=== PATIENT | female | born 1990 | race Caucasian/White ===

== ENCOUNTER 2024-06-19 13:49 | Outpatient (CLI) | payer SELFPAY ==
[2024-06-19 14:09] VITALS: BMI 28.1
[2024-06-19] MEDS: TUBERCULIN 5 UNITS/0.1ML 1ML VIAL ID (14:13)
== END 2024-06-19 23:59 | disposition home or self-care (01) ==
PROVIDERS: Visit Provider Nurse Practitioner
DX: Z11.1 Encounter for screening for respiratory tuberculosis (principal)
CPT/HCPCS: 86580

== ENCOUNTER 2024-07-27 10:53 | Emergency (ER) | payer SELFPAY ==
[2024-07-27 11:12] VITALS: BP 158/90; PULSE 99; RESP 14; TEMP 36.6; O2SAT 99; BMI 30.7
--- NOTE | 2024-07-27 12:02 | CT_ITS ---
PROCEDURE INFORMATION: Exam: CT Abdomen And Pelvis With Contrast Exam date and time: 07/27/2024 2:03 PM Age: 33 years old Clinical indication: Other: Chronic low abd and pelvic pain, fam HX cancer TECHNIQUE: Imaging protocol: Computed tomography of the abdomen and pelvis with contrast. Radiation optimization: All CT scans at this facility use at least one of these dose optimization techniques: automated exposure control; mA and/or kV adjustment per patient size (includes targeted exams where dose is matched to clinical indication); or iterative reconstruction. Contrast material: ISOVUE; Contrast volume: 75 ml; Contrast route: IV; COMPARISON: No relevant prior studies available. FINDINGS: Liver: Normal. No mass. Gallbladder and biliary ducts: Cholecystectomy Pancreas: Normal. No ductal dilation. Spleen: Normal. No splenomegaly. Adrenal glands: Normal. No mass. Kidneys and ureters: Nonobstructing renal calculi . No ureteral calculus Stomach and bowel: Unremarkable. No obstruction. No mucosal thickening. Appendix: Normal appendix Intraperitoneal space: Unremarkable. No free air. No significant fluid collection. Vasculature: Unremarkable. No abdominal aortic aneurysm. Lymph nodes: Unremarkable. No enlarged lymph nodes. Urinary bladder: Unremarkable as visualized. Reproductive: IUD in the uterus Bones/joints: Unremarkable. No acute fracture. Soft tissues: Unremarkable. IMPRESSION: No acute process
--- NOTE | 2024-07-27 12:05 | ED_ITS ---
Discharge Plan Disposition Patient Disposition: Home, Self-Care Prescriptions Prescriptions: New doxycycline hyclate 100 mg capsule 100 mg PO BID 7 Days Qty: 14 0RF metronidazole 500 mg tablet 500 mg PO BID 7 Days Qty: 14 0RF Referrals Follow up/Referrals: Dianne Gannon DO [Staff Physician] - See instructions Provider,Referral, [Primary Care Provider] - See instructions Activity Restrictions/Add. Instructions Additional Instructions/Restrictions: At this time it was felt you are safe to be discharged home. If new or worsening symptoms please do not hesitate to return the emergency department. Please take your antibiotics as prescribed and call and schedule appoint with Dr. Gannon soon as you are able. Clinical Impressions Clinical Impression: Vaginal discharge, Pelvic pain Instructions Patient Instructions: DI for Acute Abdominal Pain Print Language Print Language: Uzbek Discharge ED Provider: Kenneth Barcenas General Adult HPI General Chief complaint: Abdominal Pain Stated complaint: abd pain, swelling, bloating, lower back pain Time Seen by Provider: 07/27/24 11:00 Mode of Arrival: Ambulatory Source of Information: Patient Limitations: No Limitations Description of Symptoms (Recalled from ER Triage Doc. by RN): pt c/o bilateral lower quad pain, vaginal edema, nausea, lower back pain, urinary incontinence with coughing, constant vaginal spotting with white mucous. pt states this has been ongoing 3-4months. pt states the pain is intermittant and a 9/10 when she is having it. pt states she is not having any pain at this time. pt reports her mirena is a year past the date it should have been removed. it has been inserted x6 years. pt has a hx of endometriosis confrirmed with laproscopy. 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 History of Present Illness HPI narrative: Patient is a 33-year-old female who presents emergency department for evaluation of abdominal pain urinary dysuria and frequency, vaginal discharge. This is been going on for past 3 to 4 months and she recently bought property appear and has not been evaluated for this problem. She presents here at the behest of her . Has 1 sexual partner. Due to her low abdominal pain and the chronicity of this she is concerned because she has a familial history of gynecologic cancer. No chest pain reported. No other acute complaints at this time. Patient also has an IUD in place that was supposed to come out approximately 1 year ago. Related Data Previous Rx's ?Medication ?Instructions ?Recorded doxycycline hyclate 100 mg capsule 100 mg PO BID pelvic infection 7 07/27/24 days #14 caps metronidazole 500 mg tablet 500 mg PO BID pelvic infection 7 07/27/24 days #14 tabs Allergies Allergy/AdvReac Type Severity Reaction Status Date / Time No Known Allergies Allergy Verified 06/19/24 14:10 [facility] Disclaimer: The information contained in this section may have been updated after the patient was seen, as this information can be updated by other users. Social History Smoking Status: Current every day smoker alcohol intake: never current occupational status: other Travel in the last 8 weeks: None ROS Obtained: Yes Systems reviewed as appropriate & no additional complaints except as documented Physical Exam General General appearance: alert and in no apparent distress Head Head exam: atraumatic and normocephalic Eye Eye exam: Present PERRL ENT ENT exam: Present mucous membranes moist Neck Neck exam: Present normal inspection Chest Chest inspection: Present normal inspection and symmetric chest wall rise Respiratory Respiratory exam: Present normal lung sounds bilaterally; Absent respiratory distress Cardiovascular Cardiovascular exam: Present regular rate and normal rhythm Abdominal Exam Abdominal exam: Present soft and tenderness (Bilateral inguinal canal tenderness without palpable masses no overlying erythema, no tenderness in the periumbilical area suprapubic area or bilateral upper quadrants); Absent distention Bimanual exam: Present other (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 Normal external vaginal appearance, normal introitus, there is mucus and IUD strings at the cervical os, no significant erythema.) Extremities Exam Extremities exam: Present normal inspection Neurological Exam Neurological exam: Present alert Psychiatric Psychiatric exam: Present normal affect Skin Skin exam: Present warm and dry Medical Decision Making Medical Records Screening: Per USPSTF and CDC recommendations, given the prevalence of disease in our region, it is our hospital?s policy to screen for HIV and viral Hepatitis for all patients aged 18 and over and those with ongoing risk factors. Joey Inquiry Pt receiving controlled substance: No Vital Signs: 07/27/24 11:12 Temperature 97.9 F Temperature Source Oral Pulse Rate [Left] 99 H Respiratory Rate 14 Blood Pressure [Right Arm] 158/90 H Blood Pressure Mean [Right Arm] 112 Blood Pressure Source [Right Arm] Automatic Cuff Blood Pressure Position [Right Arm] Sitting 02 Sat by Pulse Oximetry 99 Oxygen Delivery Method Room Air Lab Data Lab Results 07/27/24 11:30: Urine Color Yellow, Urine Appearance Clear, Urine pH 7.0, Ur Specific Marcell 1.015, Urine Protein Negative, Urine Glucose (UA) Negative, Urine Ketones Negative, Urine Blood Trace-i, Urine Nitrate Negative, Urine Bilirubin Negative, Urine Urobilinogen 0.2, Ur Leukocyte Esterase Negative, Urine RBC 3-5, Urine WBC 3-5, Ur Squamous Epith Cells 5-10, Urine Yeast Occasional 07/27/24 11:31: WBC 7.1, RBC 4.70, Hgb 14.1, Hct 40.7, MCV 86.6, MCH 30.0, MCHC 34.6, RDW 12.1, Plt Count 287, MPV 9.3, Neut % (Auto) 64.9, Lymph % (Auto) 27.2, Mcclain % (Auto) 5.8, Eos % (Auto) 1.7, Baso % (Auto) 0.3, Neut # (Auto) 4.6, Lymph # (Auto) 1.9, Mcclain # (Auto) 0.4, Eos # (Auto) 0.1, Baso # (Auto) 0.0, Sodium 136, Potassium 3.7, Chloride 109 H, Carbon Dioxide 27, Anion Gap 3.7 L, BUN 10, Creatinine 0.70, Estimated Creat Clear 159, Estimated GFR 96, Est GFR ( Amer) 116, Glucose 93, Calcium 9.0, Total Bilirubin 0.4, AST 31, ALT 24, Alkaline Phosphatase 52, Total Protein 7.3, Albumin 4.1, Globulin 3.2, Albumin/Globulin Ratio 1.3, Lipase 50, Serum HCG, Qual Negative, HIV Ag/Ab Combo Qual Negative 07/27/24 11:31 07/27/24 11:31 Orders (Tests/Meds): ED MEDICATIONS Discontinued Medications Generic Name Dose Route Start Last Admin Trade Name Freq PRN Reason Stop Dose Admin Acetaminophen 1,000 mg 07/27/24 12:02 07/27/24 12:22 Acetaminophen 1,000mg/100ml Vial IV 07/27/24 12:03 1,000 mg ONCE ONE Administration Ceftriaxone Sodium 1 gm 07/27/24 13:12 07/27/24 13:26 Ceftriaxone 1gm Vial IM 07/27/24 13:13 1 gm ONCE ONE Administration Doxycycline Hyclate 100 mg 07/27/24 13:13 07/27/24 13:26 Doxycycline Hycl 100 Mg Tablet PO 07/27/24 13:14 100 mg ONCE ONE Administration Iopamidol 75 ml 07/27/24 14:04 07/27/24 14:05 Iopamidol-370 (76%);100ml Bottle IV 07/27/24 14:05 75 ml ONCE ONE Administration Lidocaine HCl 0 ml 07/27/24 13:12 07/27/24 13:26 Lidocaine 1% 5ml Pf Vial IM 07/27/24 13:13 3.6 ml ONCE ONE Administration Metronidazole 500 mg 07/27/24 13:14 07/27/24 13:26 Metronidazole 500 Mg Tablet PO 07/27/24 13:15 500 mg ONCE ONE Administration Ondansetron HCl 4 mg 07/27/24 12:02 07/27/24 12:22 Ondansetron 4mg/2ml Vial IV 07/27/24 12:03 4 mg ONCE ONE Administration Sodium Chloride 10 ml 07/27/24 14:04 07/27/24 14:05 Sodium Chloride 0.9% 10ml Syr (Rad Only) IV 07/27/24 14:05 10 ml ONCE ONE Administration ORDERS Category Date Time Status CT abdomen pelvis w con Stat Cat Scan 07/27/24 12:02 Completed CBC w/Auto Diff [Complete Blood Count Auto Diff] Stat Lab 07/27/24 11:31 Completed CMP [Comprehensive Metabolic Panel] Stat Lab 07/27/24 11:31 Completed HCG Qualitative, Serum Stat Lab 07/27/24 11:31 Completed HIV Combo Stat Lab 07/27/24 11:31 Completed Hep C Ab with Reflex to RNA Stat Lab 07/27/24 11:31 Received Lipase Stat Lab 07/27/24 11:31 Completed UA [Urinalysis and Microscopic] Stat Lab 07/27/24 11:30 Completed Genital Culture and Gram Stain Stat Micro 07/27/24 12:38 Received Medical Decision Narrative: In summary patient is a 33-year-old male with past medical history described above who presents emergency department for evaluation of chronic lower abdominal pain and vaginal discharge has not been evaluated. Patient is hemodynamically stable on arrival, afebrile. Differential diagnosis includes urinary tract infection, vaginitis, STI, vaginosis, uterine mass, among others. Workup be conducted with hematologic labs, vaginal swabs, urine GC chlamydia, CT abdomen pelvis with IV contrast.. Initial inventions include IV Tylenol, Zofran, intramuscular ceftriaxone, doxycycline, metronidazole. Initial workup reviewed by me, hematologic labs are nonactionable no acute TOYIN or critical electrolyte abnormality, no significant leukocytosis, urinalysis interpreted by me not consistent with infection. hCG negative. CT of the abdomen pelvis informally visualized by me, no obvious large ovarian or uterine mass. Formal read shows no acute process, IUD in uterus. Given this patient is appropriate for outpatient management at this time will be discharged with a course of doxycycline and metronidazole and will be referred to Dianne Gannon for continued evaluation at this time. Patient was given return precautions. Critical Care Critical Care Time Critical Care Time: No
[2024-07-27] MEDS: ACETAMINOPHEN 1,000MG/100ML VIAL 1000 MG IV (12:22)
[2024-07-27] MEDS: ONDANSETRON 4MG/2ML VIAL 4 MG IV (12:22)
[2024-07-27 12:27] LABS: Microscopic, Urine URINE MICROSCOPIC (MICROSCOPIC)
[2024-07-27 12:35] LABS: Albumin Level 4.1 g/dl (3.5-5.0); Chloride 109 mmol/L (98-107); Potassium 3.7 mmoL/L (3.5-5.1); Sodium 136 mmol/L (136-145)
[2024-07-27 12:37] LABS: Alanine Aminotransferase 24 U/L (12-78); Alkaline Phosphatase 52 U/L (38-126); Anion Gap 3.7 mEq/L (5-15); Aspartate Amino Transferase 31 U/L (14-36); Bilirubin,Total 0.4 mg/dl (0.2-1.3); Blood Urea Nitrogen 10 mg/dl (7-17); Carbon Dioxide 27 mmol/L (22.0-30.0); Creatinine Clearance Estimated 159 mL/min (50-200); Estimated Glomerular Filt Rate 96 ml/min (>60); GFR (African American) 116 ML/MIN (>60)
[2024-07-27 12:38] LABS: Albumin/Globulin Ratio 1.3 (1.1-1.8); Globulin 3.2 g/dL (1.3-3.2); Glucose 93 mg/dl (74-100); Lipase 50 U/L (23-300); Total Protein,Serum 7.3 g/dl (6.3-8.2)
[2024-07-27 12:49] LABS: Appearance,Urine CLEAR (Clear); Bilirubin,Urine Negative (Negative); Blood, Urine TRACE-I (Negative); Color,Urine YELLOW (Yellow); Glucose,Urine (UA) Negative (Negative); Ketones,Urine Negative (Negative); Leukocyte Esterase,Urine Negative (Negative); Nitrate,Urine Negative (Negative); Protein,Urine Negative (Negative); Specific Gravity, Urine 1.015 (1.005-1.030); Urobilinogen,Urine 0.2 EU/dl (0.2)
[2024-07-27] MEDS: DOXYCYCLINE HYCL 100 MG TABLET PO (13:26)
[2024-07-27] MEDS: cefTRIAXone 1GM VIAL 1 GM IM (13:26)
[2024-07-27] MEDS: LIDOCAINE 1% 5ML PF VIAL IM (13:26)
[2024-07-27] MEDS: metroNIDAZOLE 500 MG TABLET PO (13:26)
[2024-07-27 13:39] LABS: Basophils % 0.3 % (0.1-2.0); Eosinophils # 0.1 K/mm3 (0.0-0.4); Eosinophils % 1.7 % (0.1-12.0); Hematocrit 40.7 % (37.0-47.0); Hemoglobin 14.1 g/dL (12.2-16.2); Lymphocytes # 1.9 K/mm3 (0.7-4.5); Lymphocytes % 27.2 % (10-50); Mean Corpuscular HGB Conc 34.6 g/dL (31.8-35.4); Mean Corpuscular Volume 86.6 fl (81-99); Mean Platelet Volume 9.3 fl (7.4-10.4); Monocytes # 0.4 K/mm3 (0.1-1.0); Monocytes % 5.8 % (1.7-9.3); Neutrophils # 4.6 K/mm3 (1.8-7.8); Neutrophils % 64.9 % (37.0-80.0); Platelet Count 287 K/mm3 (142-424); Red Cell Distribution Width 12.1 % (11.5-17.5); White Blood Count 7.1 K/mm3 (4.8-10.8)
[2024-07-27 13:39] LABS: Yeast,Urine Occasional /lpf
[2024-07-27 13:49] LABS: HIV Combo NEGATIVE (Negative)
[2024-07-27 13:55] LABS: HCG Qualitative, Serum Negative (Negative)
[2024-07-27] MEDS: IOPAMIDOL-370 (76%);100ML BOTTLE 75 ML IV (14:05)
[2024-07-27] MEDS: SODIUM CHLORIDE 0.9% 10ML SYR (RAD ONLY) 10 ML IV (14:05)
[2024-07-27 15:16] VITALS: BP 118/83; PULSE 68; O2SAT 99
[2024-07-27 15:20] VITALS: BP 119/83; PULSE 68; RESP 18; TEMP 36.6
[2024-07-29 10:08] LABS: HCV Ab Non Reactive (Non Reactive)
[2024-07-30 20:08] LABS: Neisseria gonorrhoeae, NAA Negative (Negative)
== END 2024-07-27 15:21 | disposition home or self-care (01) ==
PROVIDERS: Emergency Provider Emergency Medicine
DX: N89.8 Other specified noninflammatory disorders of vagina (principal); R10.31 Right lower quadrant pain; R10.32 Left lower quadrant pain; M54.50 Low back pain, unspecified; R30.0 Dysuria; R35.0 Frequency of micturition
CPT/HCPCS: 74177; 80053; 81001; 83690; 84703; 85025; 86803; 87070; 87205; 87210; 87389; 87491; 87591; 96372; 96374; 96375; 99285; J0131; J0696; J2405; Q9967

== ENCOUNTER 2025-06-17 09:38 | Emergency (ER) | payer MEDICAID, SELFPAY ==
[2025-06-17] VITALS (8 sets, daily range): BP systolic 96–127; BP diastolic 64–72; PULSE 60–87; RESP 14–16; TEMP 37; O2SAT 95–99; BMI 29.1
--- NOTE | 2025-06-17 09:44 | ED_ITS ---
Discharge Plan Disposition Patient Disposition: Home, Self-Care Prescriptions Prescriptions: New promethazine 25 mg tablet 25 mg PO TID PRN (Reason: nausea and vomiting) Qty: 12 0RF No Action doxycycline hyclate 100 mg capsule 100 mg PO BID 7 Days Qty: 14 0RF metronidazole 500 mg tablet 500 mg PO BID 7 Days Qty: 14 0RF Referrals Follow up/Referrals: Provider,Referral, MD [Primary Care Provider, Medical] - See instructions Activity Restrictions/Add. Instructions Additional Instructions/Restrictions: At this time it was felt you are safe to be discharged home. If new or worsening symptoms please do not hesitate to return the emergency department. Please take your medications as prescribed. It is likely your vomiting is due to one of the many viruses going around in our community. If your vomiting persists throughout this week please call and schedule appointment to follow-up with your family doctor to make sure things are headed in the right direction. If you are unable to keep anything down despite your nausea medication please represent to the emergency room for continued evaluation. Clinical Impressions Clinical Impression: Vomiting Instructions Patient Instructions: DI for Diarrhea and Traveler's Diarrhea in Adults, DI for Diarrhea and Traveler's Diarrhea in Children, DI for Nausea in Adults, DI for Nausea in Children Print Language Print Language: Guamanian Discharge ED Provider: Kenneth Barcenas HPI General Chief Complaint: Nausea/Vomiting/Diarrhea Stated Complaint: vomiting, low grade fever Time Seen by Provider: 06/17/25 09:43 History of Present Illness HPI narrative: Speech box open speech box Related Data Previous Rx's ?Medication ?Instructions ?Recorded doxycycline hyclate 100 mg capsule 100 mg PO BID pelvi c infection 7 07/27/24 days #14 caps metronidazole 500 mg tablet 500 mg PO BID pelvic infec tion 7 07/27/24 days #14 tabs promethazine 25 mg tablet 25 mg PO TID PRN nausea and 06/17/25 vomiting #12 tabs Allergies Allergy/AdvReac Type Severity Reaction Status Date / Time No Known Allergies Allergy Verified 06/19/24 14:10 [facility] Disclaimer: The information contained in this section may have been updated after the patient was seen, as this information can be updated by other users. Social History (Updated 07/27/24 @ 15:15 by Kenneth Barcenas MD) Smoking Status: Current every day smoker alcohol intake: never current occupational status: other Travel in the last 8 weeks?: None Have you lived/traveled outside [place] in past 30 days?: No Contact w/someone who lives/traveled outside [place] past 30 days?: No Exposure to someone with infectious disease in past 14 days?: No Do you have a fever (greater than 100.4 F or 38 C)?: No Have you tested positive for COVID-19?: No Exposed to someone with COVID-19 in past 14 days?: No Do you have a sore throat?: No Do you have a cough?: No Do you have any weakness?: No Do you have any diarrhea?: No Are you experiencing any unusual bleeding?: No Do you have any muscle aches/pain?: No Do you have any abdominal pain?: No Are you experiencing loss of taste or smell?: No ROS Obtained: Yes Systems reviewed as appropriate & no additional complaints except as documented Physical Exam General General appearance: alert and in no apparent distress Head Head exam: atraumatic and normocephalic Eye Eye exam: Present PERRL and EOMI ENT ENT exam: Present mucous membranes moist Neck Neck exam: Present normal inspection Chest Chest inspection: Present normal inspection and symmetric chest wall rise Respiratory Respiratory exam: Present normal lung sounds bilaterally; Absent respiratory distress Cardiovascular Cardiovascular exam: Present regular rate and normal rhythm Abdominal Exam Abdominal exam: Present soft; Absent tenderness, guarding or rebound Extremities Exam Extremities exam: Present normal inspection Neurological Exam Neurological exam: Present alert Psychiatric Psychiatric exam: Present normal affect Skin Skin exam: Present warm and dry Medical Decision Making Joey Inquiry Pt receiving controlled substance: No Vital Signs Vital Signs: 06/17/25 09:57 06/17/25 10:00 06/17/25 10:15 Temperature 98.6 F Temperature Source Oral Pulse Rate 83 71 Pulse Rate [Right Radial] 87 Respiratory Rate 14 Blood Pressure 125/64 109/69 L Blood Pressure [Right Arm] 127/72 Blood Pressure Mean [Right Arm] 90 Blood Pressure Source [Right Arm] Automatic Cuff Blood Pressure Position [Right Arm] Supine 02 Sat by Pulse Oximetry 97 95 95 Oxygen Delivery Method Room Air 06/17/25 10:30 06/17/25 10:45 Temperature Temperature Source Pulse Rate 77 74 Pulse Rate [Right Radial] Respiratory Rate Blood Pressure 110/70 111/71 Blood Pressure [Right Arm] Blood Pressure Mean [Right Arm] Blood Pressure Source [Right Arm] Blood Pressure Position [Right Arm] 02 Sat by Pulse Oximetry 96 96 Oxygen Delivery Method Lab Data Labs: Lab Results 06/17/25 09:51: WBC 9.3, RBC 4.95, Hgb 14.8, Hct 43.8, MCV 88.5, MCH 29.9, MCHC 33.8, RDW 12.3, Plt Count 271, MPV 9.0, Neut % (Auto) 81.4 H, Lymph % (Auto) 12.5, Bladen % (Auto) 5.2, Eos % (Auto) 0.6, Baso % (Auto) 0.1, Neut # (Auto) 7.6, Lymph # (Auto) 1.2, Bladen # (Auto) 0.5, Eos # (Auto) 0.1, Baso # (Auto) 0.0, S odium 135 L, Potassium 3.9, Chloride 105, Carbon Dioxide 24, Anion Gap 9.9, BUN 12, Creatinine 0.80, Estimated Creat Clear 131, Estimated GFR 82, Est GFR ( Amer) 99, Glucose 94, Calcium 9.4, Total Bilirubin 0.7, AST 25, ALT 19, Alkaline Phosphatase 52, Total Protein 8.5 H, Albumin 4.8, Globulin 3.7 H, Albumin/Globulin Ratio 1.3, Lipase 65, Serum HCG, Qual Negative, SARS-CoV-2 (PCR) Not detected, Influenza A Untype (PCR) Not detected, Influenza Type B (PCR) Not detected 06/17/25 09:51 06/17/25 09:51 Response Orders (Tests/Meds): ED MEDICATIONS Discontinued Medications Generic Name Dose Route Start Last Admin Trade Name Freq PRN Reason Stop Dose Admin Lactated Ringer's 1,000 mls @ 999 mls/hr 06/17/25 09:53 06/17/25 10:05 Lactated Ringer's 1000 Ml Bag IV 06/17/25 10:53 999 mls/hr .Q1H1M ONE Administration Ondansetron HCl 4 mg 06/17/25 09:53 06/17/25 10:05 Ondansetron 4mg/2ml Vial IV 06/17/25 09:54 4 mg ONCE ONE Administration Promethazine HCl 25 mg 06/17/25 10:38 06/17/25 10:52 Promethazine Hcl 25mg/Ml 1ml Vial IV 06/17/25 10:39 25 mg ONCE ONE Administration Sodium Chloride 25 ml 06/17/25 10:38 06/17/25 10:52 Sodium Chloride 0.9% 25ml Bag IV 06/17/25 10:39 25 ml ONCE ONE Administration ORDERS Category Date Time Status CBC w/Auto Diff [Complete Blood Count Auto Diff] Stat Lab 06/17/25 09:51 Completed CMP [Comprehensive Metabolic Panel] Stat Lab 06/17/25 09:51 Completed HCG Qualitative, Serum Stat Lab 06/17/25 09:51 Completed Lipase Stat Lab 06/17/25 09:51 Completed Rapid PCR Covid and Flu A/B Stat Lab 06/17/25 09:51 Completed EKG Request [ECG Request] Stat Y 06/17/25 09:43 Stop Req EKG Request [ECG Request] Stat Y 06/17/25 09:53 Ordered ECG Data Tracing #1: ECG Narrative: Independently interpreted by me rate is 74, rhythm is regular, axis is normal, no ST elevation in anatomical contiguous leads, QTc 396 MDM Narrative Medical Decision Narrative: In summary patient is a 34-year-old female with past medical history as described above who presents to the emergency department for evaluation of vomiting. Patient is hemodynamically stable nontoxic-appearing upon arrival, afebrile. Differential diagnosis includes nonspecific viral syndrome, pancreatitis, gastritis, , among others. Workup will be conducted with hematologic labs, hCG, viral swab. Initial inventions include Zofran, crystalloid bolus. Initial workup reviewed by me no significant leukocytosis no transfusable anemia no TOYIN or critical electrolyte abnormality hCG negative. Viral swab negative. Upon repeat evaluation patient still had significant nausea for which Phenergan will be administered. P.o. trial conducted at bedside was successful. Given this patient is appropriate for discharge at this time likely has nonspecific viral syndrome was given return precautions and will be discharged with a course of Phenergan.
[2025-06-17 10:01] LABS: Coronavirus 19, PCR Not Detected (NotDetected); Influenza A, PCR Not Detected (NotDetected); Influenza B, PCR Not Detected (NotDetected)
--- NOTE | 2025-06-17 10:04 | ECG_ITS ---
APPROVED REPORT Exam: Resting ECG HR:74 bpm ECG Measurements Heart Rate 74 AXES WA 149 P 57 QRSd 86 QRS 63 QT 369 T 53 QTc 396 Conclusion SINUS RHYTHM NORMAL ECG Electronically signed by : MEKHI BRIDGES, 06/17/2025 15:03:13
[2025-06-17] MEDS: LACTATED RINGERS 1000ML 1,000 ML 999 ML IV (10:05)
[2025-06-17] MEDS: ONDANSETRON 4MG/2ML VIAL 4 MG IV (10:05)
[2025-06-17 10:08] LABS: Hematocrit 43.8 % (37.0-47.0); Hemoglobin 14.8 g/dL (12.2-16.2); Immature Granulocytes % 0.2 %; Mean Corpuscular HGB Conc 33.8 g/dL (31.8-35.4); Mean Corpuscular Hemoglobin 29.9 pg (27.0-31.2); Mean Corpuscular Volume 88.5 fl (81-99); Nucleated Red Blood Cells % 0 %; Platelet Count 271 K/mm3 (142-424); Red Blood Count 4.95 M/mm3 (4.20-5.40); Red Cell Distribution Width-SD 40.0 fL; White Blood Count 9.3 K/mm3 (4.8-10.8)
[2025-06-17 10:15] LABS: Alanine Aminotransferase 19 U/L (12-78); Albumin Level 4.8 g/dl (3.5-5.0); Albumin/Globulin Ratio 1.3 (1.1-1.8); Alkaline Phosphatase 52 U/L (38-126); Anion Gap 9.9 mEq/L (5-15); Aspartate Amino Transferase 25 U/L (14-36); Bilirubin,Total 0.7 mg/dl (0.2-1.3); Blood Urea Nitrogen 12 mg/dl (7-17); Calcium 9.4 mg/dl (8.4-10.2); Carbon Dioxide 24 mmol/L (22.0-30.0); Chloride 105 mmol/L (98-107); Creatinine Clearance Estimated 131 mL/min (50-200); Creatinine,Serum 0.80 mg/dl (0.52-1.04); Estimated Glomerular Filt Rate 82 ml/min (>60); GFR (African American) 99 ML/MIN (>60); Globulin 3.7 g/dL (1.3-3.2); Glucose 94 mg/dl (74-100); Lipase 65 U/L (23-300); Potassium 3.9 mmoL/L (3.5-5.1); Sodium 135 mmol/L (136-145); Total Protein,Serum 8.5 g/dl (6.3-8.2)
[2025-06-17 10:30] LABS: HCG Qualitative, Serum Negative (Negative)
--- NOTE | 2025-06-17 10:38 | PC.NURSE ---
I rounded on the pt and took her a water for PO challenge. She reports she is still feeling bad and that the zofran has not helped. No other needs voiced. No new complaints. call mccormick in reach. notified and is going to order something else for nausea.
[2025-06-17] MEDS: SODIUM CHLORIDE 0.9% 25ML BAG 25 ML IV (10:52)
[2025-06-17] MEDS: PROMETHAZINE HCL 25MG/ML 1ML VIAL 25 MG IV (10:52)
--- NOTE | 2025-06-17 11:10 | ED_ITS ---
Discharge Plan Disposition Patient Disposition: Home, Self-Care Prescriptions Prescriptions: New promethazine 25 mg tablet 25 mg PO TID PRN (Reason: nausea and vomiting) Qty: 12 0RF No Action doxycycline hyclate 100 mg capsule 100 mg PO BID 7 Days Qty: 14 0RF metronidazole 500 mg tablet 500 mg PO BID 7 Days Qty: 14 0RF Referrals Follow up/Referrals: Provider,Referral, MD [Primary Care Provider, Medical] - See instructions Activity Restrictions/Add. Instructions Additional Instructions/Restrictions: At this time it was felt you are safe to be discharged home. If new or worsening symptoms please do not hesitate to return the emergency department. Please take your medications as prescribed. It is likely your vomiting is due to one of the many viruses going around in our community. If your vomiting persists throughout this week please call and schedule appointment to follow-up with your family doctor to make sure things are headed in the right direction. If you are unable to keep anything down despite your nausea medication please represent to the emergency room for continued evaluation. Clinical Impressions Clinical Impression: Vomiting Stand Alone Forms Stand Alone Forms: Work/School Release Instructions Patient Instructions: DI for Diarrhea and Traveler's Diarrhea in Adults, DI for Diarrhea and Traveler's Diarrhea in Children, DI for Nausea in Adults, DI for Nausea in Children Print Language Print Language: Burmese Discharge ED Provider: Kenneth Barcenas General Adult HPI General Chief complaint: Nausea/Vomiting/Diarrhea Stated complaint: vomiting, low grade fever Time Seen by Provider: 06/17/25 09:43 Mode of Arrival: Ambulatory Source of Information: Patient Description of Symptoms (Recalled from ER Triage Doc. by RN): patient states she has been nauseated and vomited twice today. no abdominal pain History of Present Illness HPI narrative: Patient is a 34-year-old female with no pertinent past medical history presents emergency department for evaluation of vomiting. History is obtained by patient at bedside since 8 AM this morning she has had nausea and nonbloody vomiting. No diarrhea, no dysuria no vaginal bleeding or discharge last menstrual period 7 years ago. Abdominal surgical history includes cholecystectomy. No chest pain no cough no other acute complaints at this time. Please note that above description of symptoms, in this electronic medical record under categorization of recalled from ER triage doctor by RN are reflective of an initial nursing assessment, however, is not reflective of my full history and physical exam that was personally taken and clarified. Consequentially, this preceding description of symptoms, which may include the patient's categorized chief complaint in the EMR, do not reflect my personal clinical impression, and the ultimate description of history of present illness and patient stated complaints should be deferred to this section of the note. Unless stated otherwise or congruent with this section of the note, additional signs, symptoms, or incongruence should be interpreted as inaccurate with my clinical impression. Related Data Previous Rx's ?Medication ?Instructions ?Recorded doxycycline hyclate 100 mg capsule 100 mg PO BID pelvi c infection 7 07/27/24 days #14 caps metronidazole 500 mg tablet 500 mg PO BID pelvic infec tion 7 07/27/24 days #14 tabs promethazine 25 mg tablet 25 mg PO TID PRN nausea and 06/17/25 vomiting #12 tabs Allergies Allergy/AdvReac Type Severity Reaction Status Date / Time No Known Allergies Allergy Verified 06/19/24 14:10 [facility] Disclaimer: The information contained in this section may have been updated after the patient was seen, as this information can be updated by other users. Social History (Updated 07/27/24 @ 15:15 by Kenneth Barcenas MD) Smoking Status: Current every day smoker alcohol intake: never current occupational status: other Travel in the last 8 weeks?: None Have you lived/traveled outside [place] in past 30 days?: No Contact w/someone who lives/traveled outside [place] past 30 days?: No Exposure to someone with infectious disease in past 14 days?: No Do you have a fever (greater than 100.4 F or 38 C)?: No Have you tested positive for COVID-19?: No Exposed to someone with COVID-19 in past 14 days?: No Do you have a sore throat?: No Do you have a cough?: No Do you have any weakness?: No Do you have any diarrhea?: No Are you experiencing any unusual bleeding?: No Do you have any muscle aches/pain?: No Do you have any abdominal pain?: No Are you experiencing loss of taste or smell?: No ROS Obtained: Yes Systems reviewed as appropriate & no additional complaints except as documented Physical Exam General General appearance: alert and in no apparent distress Head Head exam: atraumatic and normocephalic Eye Eye exam: Present PERRL and EOMI ENT ENT exam: Present mucous membranes moist Neck Neck exam: Present normal inspection Chest Chest inspection: Present normal inspection and symmetric chest wall rise Respiratory Respiratory exam: Present normal lung sounds bilaterally; Absent respiratory distress Cardiovascular Cardiovascular exam: Present regular rate and normal rhythm Abdominal Exam Abdominal exam: Present soft; Absent tenderness, guarding, rebound or rigidity Extremities Exam Extremities exam: Present normal inspection Neurological Exam Neurological exam: Present alert and CN II-XII intact Psychiatric Psychiatric exam: Present normal affect Skin Skin exam: Present warm and dry Medical Decision Making Medical Records Screening: Per USPSTF and CDC recommendations, given the prevalence of disease in our region, it is our hospital?s policy to screen for HIV and viral Hepatitis for all patients aged 18 and over and those with ongoing risk factors. Joey Inquiry Pt receiving controlled substance: No Vital Signs: 06/17/25 09:57 06/17/25 10:00 06/17/25 10:15 Temperature 98.6 F Temperature Source Oral Pulse Rate 83 71 Pulse Rate [Right Radial] 87 Respiratory Rate 14 Blood Pressure 125/64 109/69 L Blood Pressure [Right Arm] 127/72 Blood Pressure Mean [Right Arm] 90 Blood Pressure Source [Right Arm] Automatic Cuff Blood Pressure Position [Right Arm] Supine 02 Sat by Pulse Oximetry 97 95 95 Oxygen Delivery Method Room Air 06/17/25 10:30 06/17/25 10:45 Temperature Temperature Source Pulse Rate 77 74 Pulse Rate [Right Radial] Respiratory Rate Blood Pressure 110/70 111/71 Blood Pressure [Right Arm] Blood Pressure Mean [Right Arm] Blood Pressure Source [Right Arm] Blood Pressure Position [Right Arm] 02 Sat by Pulse Oximetry 96 96 Oxygen Delivery Method Lab Data Lab Results 06/17/25 09:51: WBC 9.3, RBC 4.95, Hgb 14.8, Hct 43.8, MCV 88.5, MCH 29.9, MCHC 33.8, RDW 12.3, Plt Count 271, MPV 9.0, Neut % (Auto) 81.4 H, Lymph % (Auto) 12.5, [place] % (Auto) 5.2, Eos % (Auto) 0.6, Baso % (Auto) 0.1, Neut # (Auto) 7.6, Lymph # (Auto) 1.2, [place] # (Auto) 0.5, Eos # (Auto) 0.1, Baso # (Auto) 0.0, S odium 135 L, Potassium 3.9, Chloride 105, Carbon Dioxide 24, Anion Gap 9.9, BUN 12, Creatinine 0.80, Estimated Creat Clear 131, Estimated GFR 82, Est GFR ( Amer) 99, Glucose 94, Calcium 9.4, Total Bilirubin 0.7, AST 25, ALT 19, Alkaline Phosphatase 52, Total Protein 8.5 H, Albumin 4.8, Globulin 3.7 H, Albumin/Globulin Ratio 1.3, Lipase 65, Serum HCG, Qual Negative, SARS-CoV-2 (PCR) Not detected, Influenza A Untype (PCR) Not detected, Influenza Type B (PCR) Not detected 06/17/25 09:51 06/17/25 09:51 Orders (Tests/Meds): ED MEDICATIONS Discontinued Medications Generic Name Dose Route Start Last Admin Trade Name Freq PRN Reason Stop Dose Admin Lactated Ringer's 1,000 mls @ 999 mls/hr 06/17/25 09:53 06/17/25 11:07 Lactated Ringer's 1000 Ml Bag IV 06/17/25 10:53 Infused .Q1H1M ONE Infusion Ondansetron HCl 4 mg 06/17/25 09:53 06/17/25 10:05 Ondansetron 4mg/2ml Vial IV 06/17/25 09:54 4 mg ONCE ONE Administration Promethazine HCl 25 mg 06/17/25 10:38 06/17/25 10:52 Promethazine Hcl 25mg/Ml 1ml Vial IV 06/17/25 10:39 25 mg ONCE ONE Administration Sodium Chloride 25 ml 06/17/25 10:38 06/17/25 10:52 Sodium Chloride 0.9% 25ml Bag IV 06/17/25 10:39 25 ml ONCE ONE Administration ORDERS Category Date Time Status CBC w/Auto Diff [Complete Blood Count Auto Diff] Stat Lab 06/17/25 09:51 Completed CMP [Comprehensive Metabolic Panel] Stat Lab 06/17/25 09:51 Completed HCG Qualitative, Serum Stat Lab 06/17/25 09:51 Completed Lipase Stat Lab 06/17/25 09:51 Completed Rapid PCR Covid and Flu A/B Stat Lab 06/17/25 09:51 Completed EKG Request [ECG Request] Stat Y 06/17/25 09:43 Stop Req EKG Request [ECG Request] Stat Y 06/17/25 09:53 Ordered ECG Data Tracing #1: Independently interpreted by me rate is 74, rhythm is regular, axis is normal, no ST elevation in anatomical contiguous leads, QTc 396 Medical Decision Narrative: In summary patient is a 34-year-old female with past medical history as described above who presents to the emergency department for evaluation of vomiting. Patient is hemodynamically stable nontoxic-appearing upon arrival, afebrile. Differential diagnosis includes nonspecific viral syndrome, pancreatitis, gastritis, , among others. Workup will be conducted with hematologic labs, hCG, viral swab. Initial inventions include Zofran, crystalloid bolus. Initial workup reviewed by me no significant leukocytosis no transfusable anemia no TOYIN or critical electrolyte abnormality hCG negative. Viral swab negative. Upon repeat evaluation patient still had significant nausea for which Phenergan will be administered. P.o. trial conducted at bedside was successful. Given this patient is appropriate for discharge at this time likely has nonspecific viral syndrome was given return precautions and will be discharged with a course of Phenergan. [employer]pper [employer] T[employer] disclaimer Much of this encounter note is an electronic train conductor spoken language to printed text. Electronic train conductor of the spoken language may permit errors. Although I have reviewed the note, some errors may still exist. Critical Care Critical Care Time Critical Care Time: No
== END 2025-06-17 11:24 | disposition home or self-care (01) ==
PROVIDERS: Emergency Provider Emergency Medicine
DX: R11.10 Vomiting, unspecified (principal); R50.9 Fever, unspecified
CPT/HCPCS: 80053; 83690; 84703; 85025; 87636; 93005; 96361; 96365; 96375; 99285; J2405; J2550; J7120